=== PATIENT | female | born 1985 | race African-American/Black ===

== ENCOUNTER 2021-11-21 21:09 | Emergency (ER) | payer OTHER, SELFPAY ==
[2021-11-21 21:13] VITALS: BP 136/89; PULSE 114; RESP 18; TEMP 36.2; O2SAT 99
[2021-11-21 22:03] VITALS: BP 120/87; PULSE 108; TEMP 36.8; O2SAT 100
--- NOTE | 2021-11-21 23:02 | PC.NURSE ---
report received from Vel RN
[2021-11-21] MEDS: ACETAMINOPHEN 500 MG TABLET 1000 MG PO (23:40)
--- NOTE | 2021-11-21 23:54 | ED.GENADULT ---
HPI - General Adult General Chief complaint: Unspecified Stated complaint: Covid + 11/19/21 difficulty sleeping,feet cold Time Seen by Provider: 11/21/21 23:08 History of Present Illness HPI narrative: Patient is a 36-year-old female who presents ER with difficulty sleeping. She reports she is able to fall asleep but it is only a light sleeper and she can still hear people walking and talking around her. She was diagnosed with COVID-19 on 11/19/2021. She was having fevers but they have since gone away. She has no difficulty breathing. No cough. She has tried to take Tylenol and DayQuil for her symptoms to no avail. She does report some mild throbbing frontal headache at this time. She also endorses some discomfort in her left ear. Related Data Allergies Allergy/AdvReac Type Severity Reaction Status Date / Time No Known Allergies Allergy Verified 11/21/21 21:34 Review of Systems Review of Systems: All systems reviewed & are unremarkable except as noted in HPI and below Constitutional: Constitutional: Denies chills, Reports fever(s) and Reports poor appetite ENT: Reports otalgia and Reports headache(s) Respiratory: Respiratory: Denies cough, Denies dyspnea and Denies wheezing PMFSH Past Medical History Medical History (Updated 11/21/21 @ 23:58 by Kodi Ferraro MD) Healthy female adult Surgical History Surgical History (Updated 11/21/21 @ 23:58 by Kodi Ferraro MD) No history of previous surgery Social History Social History (Updated 11/21/21 @ 23:58 by Kodi Ferraro MD) Smoking status: Never smoker Exam Narrative: GENERAL: Well-appearing, well-nourished, and in no acute distress. HEAD: Normocephalic, atraumatic. ENT: TMs normal bilaterally. CHEST: Clear to auscultation. No respiratory distress. HEART: Tachycardic and regular. Normal peripheral pulses EXTREMITIES: Normal range of motion. No edema. NEURO: Alert and oriented x3. PSYCH: Normal mood and affect. Course Course Emergency Course: Patient resting comfortably. Will give Benadryl for home to help with sleep. Tylenol here for headache. Vital Signs Vital signs: Vital Signs Temperature 97.2 F L 11/21/21 21:13 Pulse Rate 114 H 11/21/21 21:13 Respiratory Rate 18 11/21/21 21:13 Blood Pressure 136/89 11/21/21 21:13 Pulse Oximetry 99 11/21/21 21:13 Temperature 98.3 F 11/21/21 22:03 Pulse Rate 108 H 11/21/21 22:03 Respiratory Rate 18 11/21/21 21:13 Blood Pressure 120/87 11/21/21 22:03 Pulse Oximetry 100 11/21/21 22:03 Medical Decision Making Vital Signs Vital Signs: Vital Signs Temperature 97.2 F L 11/21/21 21:13 Pulse Rate 114 H 11/21/21 21:13 Respiratory Rate 18 11/21/21 21:13 Blood Pressure 136/89 11/21/21 21:13 Pulse Oximetry 99 11/21/21 21:13 Temperature 98.3 F 11/21/21 22:03 Pulse Rate 108 H 11/21/21 22:03 Respiratory Rate 18 11/21/21 21:13 Blood Pressure 120/87 11/21/21 22:03 Pulse Oximetry 100 11/21/21 22:03 Discharge Plan Discharge Clinical Impression: Insomnia due to medical condition Patient Disposition: Home, Self-Care Condition: Stable Instructions: Insomnia (ED) Additional Instructions: Try taking Benadryl to help you sleep. Return the ER if you have difficulty breathing, you cannot keep down food or water, you have additional concerns. Prescriptions: New diphenhydramine HCl [Benadryl] 25 mg capsule 25 mg PO HS PRN (Reason: sleep) Qty: 10 RF: 0 Follow-up/Referrals: Malachi Mac MD [Physician] - 1 Week PHYSICIAN,TELEPHONE REPAIRER [Primary Care Provider] -
[2021-11-22] VITALS: PULSE 99; RESP 18; O2SAT 100
[2021-11-22 00:10] VITALS: TEMP 36.8
== END 2021-11-22 00:10 | disposition home or self-care (01) ==
PROVIDERS: Emergency Provider Emergency Medicine
DX: U07.1 COVID-19 (principal); G47.01 Insomnia due to medical condition
CPT/HCPCS: 99283; A9270

== ENCOUNTER 2022-02-04 19:45 | Emergency (ER) | payer SELFPAY ==
[2022-02-04] VITALS (14 sets, daily range): BP systolic 127–140; BP diastolic 86–105; PULSE 104–135; RESP 13–23; TEMP 36.9; O2SAT 99–100
--- NOTE | ~2022-02-04 | CT_ITS ---
EXAMINATION: CTA chest PE protocol DATE: 02/04/2022 22:43 INDICATION: Palpitations. Elevated d-dimer. Fatigue. TECHNIQUE: Computed tomography angiography (CTA) of the chest was performed with 100 mL Omnipaque-350 intravenous contrast timed to evaluate the pulmonary arteries. Coronal maximum intensity projection 3D-reconstructions were created by the technologist. Automated exposure control and iterative reconst ruction technique were employed. Exam dose: 150.05 mGy-cm total exam DLP. COMPARISON: 06/12/2015 portable AP chest FINDINGS: There is diagnostic contrast enhancement of the pulmonary arteries and no evidence of pulmo nary embolism. Normal heart size. No thoracic aortic aneurysm or dissection. No pericardial or pleural effusion. No hilar or mediastinal mass lesion or lymphadenopathy. No pulmonary infiltrate or consolidation or pulmonary mass lesion. There is an at least 6 cm area of hypoattenuation in the posterior lateral right hepatic lobe with pe ripheral pulling of contrast material,, most consistent with a large hepatic hemangioma There is a 6 mm area of contrast enhancement of the hepatic dome, additional smaller area of contrast -enhancement in the posteromedial hepatic dome, possibly additional smaller hemangiomas. Hepatic MRI examination would be helpful for further evaluation as clinically appropriate. Included skeletal structures are unremarkable. IMPRESSION: No evidence of pulmonary embolism Probable hepatic hemangioma seminal consider hepatic MR examination for further evaluation Reviewed, dictated and finalized at [facility]. Reviewed, dictated and finalized at [facility].
--- NOTE | 2022-02-04 20:11 | ECG_ITS ---
Measurements Intervals [place] Rate: 151 P: 69 WI: 100 QRS: 82 QRSD: 73 T: 54 QT: 319 QTc: 507 Interpretive Statements PROBLEM SINUS TACHYCARDIA WITH SHORT WI INTERVAL, POSSIBLE ATRIAL FLUTTER NONSPECIFIC ST & T-WAVE ABNORMALITY ABNORMAL RHYTHM ECG NO PREVIOUS ECG AVAILABLE FOR COMPARISON Electronically Signed On 02-05-2022 12:07:02 CDT by Isabella Mari M.D.
[2022-02-04 20:38] LABS: Basophils Percent Auto 0.5 % (0.2-1.2); Eosinophils Percent Auto 0.3 % (0-4.4); Hemoglobin 13.3 g/dL (12.0-15.0); Immature Granulocyte Absolute 0.01 K/mm3 (0.00-0.031); Immature Granulocyte Percent A 0.2 % (0-0.5); Lymphocytes Absolute Auto 1.87 K/mm3 (0.9-3.2); Mean Corpuscular HGB Conc 32.4 g/dl (32-36); Mean Corpuscular Hemoglobin 29.6 pg (26-34); Mean Corpuscular Volume 91.1 fl (80-100); Mean Platelet Volume 10.2 fl (7.4-10.4); Monocytes Absolute Auto 0.8 K/mm3 (0.1-0.6); Monocytes Percent Auto 12.4 % (2.6-8.5); Neutrophils Absolute Auto 3.4 K/mm3 (1.3-6.7); Neutrophils Percent Auto 55.6 % (45.5-73.1); Platelet Count Result 320 k/mm3 (150-375); Red Cell Distribution Width 12.4 % (11.5-14.5)
--- NOTE | 2022-02-04 20:46 | ED.WEAKNESS ---
HPI - Weakness General Chief complaint: Weakness Stated complaint: fatigue, worried about anemia Time Seen by Provider: 02/04/22 20:33 Source: patient History of Present Illness HPI Narrative: Patient presents with weakness. Reports she woke up this morning feeling a little bit off. She was recently diagnosed with UTI to start antibiotics today. Her throughout the day she is noted palpitation and generalized weakness. Denies any chest pain or shortness of breath. She does report some mild lower abdominal pain radiating to her left back reports the symptoms have slightly improved after days of initiating her antibiotics and she is done recently diagnosed with a UTI. She denies any fevers, cough, congestion, nausea, vomiting, diarrhea Related Data Allergies Allergy/AdvReac Type Severity Reaction Status Date / Time No Known Allergies Allergy Verified 02/04/22 20:37 Review of Systems Review of Systems: CONSTITUTIONAL: Denies fever, chills, or sweats. EYES: Denies visual changes, redness, or discharge. ENT: Denies rhinorrhea, congestion, sore throat, or otalgia. CARDIOVASCULAR: Denies chest pain, or edema. RESPIRATORY: Denies cough or dyspnea. GASTROINTESTINAL: Denies nausea, vomiting, or diarrhea. GENITOURINARY: Denies dysuria or hematuria. SKIN: Denies rash or itching. MUSCULOSKELETAL: Denies back pain, joint pain, or myalgia. NEUROLOGIC: Denies headache, numbness, dizziness, or weakness. PSYCHIATRIC: Denies anxiety or depression. All systems reviewed & are unremarkable except as noted in HPI and below PMFSH Past Medical History Medical History (Updated 02/04/22 @ 23:24 by Valdo Murrya MD) Anemia Healthy female adult Surgical History Surgical History No history of previous surgery Social History Social History Smoking status: Never smoker Exam Narrative: GENERAL: Well-appearing, well-nourished, and in no acute distress. HEAD: Normocephalic, atraumatic. EYES: PERRLA and EOMI. ENT: Nares clear, no rhinorrhea or epistaxis. Mucous membranes moist. NECK: Supple. No masses. No JVD CHEST: Clear to auscultation. No respiratory distress. No wheezes rales or rhonchi HEART: Regular tachycardia. No murmur heard. Normal peripheral pulses. ABDOMEN: Soft, nontender, nondistended, normal active bowel sounds. EXTREMITIES: Normal range of motion. No edema. SKIN: Warm, dry, no rash. NEURO: No focal deficits. Alert and oriented x3. PSYCH: Normal mood and affect. Course Reevaluation(s) Reevaluation #1: Patient ports feeling much improved results and plan reviewed with patient. Patient is comfortable with outpatient plan. Date: 02/04/22 Time: 23:21 Vital Signs Vital signs: Vital Signs Temperature 36.9 C 02/04/22 20:07 Pulse Rate 133 H 02/04/22 20:07 Respiratory Rate 18 02/04/22 20:07 Blood Pressure 136/86 02/04/22 20:07 Pulse Oximetry 99 02/04/22 20:07 Temperature 36.9 C 02/04/22 20:07 Pulse Rate 95 02/05/22 00:01 Respiratory Rate 18 02/05/22 00:01 Blood Pressure 129/86 02/05/22 00:01 Pulse Oximetry 100 02/05/22 00:01 MDM - Weakness MDM Narrative Medical decision making narrative: H&P as above, vs tachycardia improved with fluids, pt looks clinically well, exam reassuring and nonacute abdomen lungs were clear, labs with elevated dimer otherwise clinically unremarkable, img unremarkable for acute process but there is concern for hemangiomas in the liver, additional labs/img considered, symptomatic relief available as needed, on reevaluation pt continues to looks clinically well. Palpitations name unclear allergy may be related to patient's UTI and dehydration, dns severe sepsis, severe dehydration hemangiomas are likely incidental finding patient denies any early satiety pressure or pain in that area. plan to tx/monitor as op w/ pcm f/u findings/plan discussed with pt, p
[2022-02-04 20:54] LABS: Alanine Aminotransferase 12 U/L (4-35); Alkaline Phosphatase 52 U/L (38-126); Anion Gap 10 mmol/L (8-16); Aspartate Amino Transferase 31 U/L (14-36); Bilirubin,Total 0.7 mg/dL (0.2-1.3); Blood Urea Nitrogen 9 mg/dL (7-17); Calcium 9.1 mg/dL (8.4-10.2); Carbon Dioxide 28 mmol/L (22-30); Chloride 101 mmol/L (98-107); Estimated CRCL calculation 84 ml/min; Estimated Glomerular Filt Rate > 60; Glucose 102 mg/dL (65-110); Potassium 3.5 mmol/L (3.4-5.0); Sodium 139 mmol/L (137-145)
[2022-02-04 20:55] LABS: Add Urine Microscopic? YES; Appearance Urine Clear (Clear); Bacteria Urine Trace /hpf; Bilirubin Urine Negative (Negative); Blood Urine Negative (Negative); Color Urine Yellow (Yellow); Glucose Urine UA Negative (Negative); Ketones Urine Negative (Negative); Leukocyte Esterase Ur 1+ LEU/UL (Negative); Nitrate Urine Negative (Negative); Protein Urine Negative (Negative); RBC Urine 0-2 /hpf (0-2); Squamous Epithelial Cell Urine Few /hpf (Few); Urobilinogen Urine Negative mg/dL (<2.0)
[2022-02-04] MEDS: SODIUM CHLORIDE 0.9% IV 1,000 ML 999 ML IV CONT ×2 (20:56→22:28)
[2022-02-04 21:00] LABS: Specific Grav Ur 1.001 (1.001-1.035)
[2022-02-04 21:11] LABS: D Dimer 0.55 ug/mL (<0.48)
[2022-02-04 22:55] LABS: Partial Thromboplastin Time 26.9 SECONDS (22.3-36.8)
[2022-02-05 00:01] VITALS: BP 129/86; PULSE 95; RESP 18; O2SAT 100
== END 2022-02-04 23:57 | disposition home or self-care (01) ==
PROVIDERS: Emergency Provider Emergency Medicine
DX: R00.0 Tachycardia, unspecified (principal); E86.0 Dehydration; N39.0 Urinary tract infection, site not specified; Z86.2 Personal history of diseases of the blood and blood-forming organs and certain disorders involving the immune mechanism; R94.31 Abnormal electrocardiogram [ECG] [EKG]; R93.2 Abnormal findings on diagnostic imaging of liver and biliary tract
CPT/HCPCS: 36415; 71275; 80053; 81001; 81025; 83605; 85025; 85380; 85610; 85730; 93005; 96360; 96361; 99284; J7030; Q9967